=== PATIENT | female | born 1990 | race Caucasian/White ===

== ENCOUNTER 2024-04-18 16:01 | Emergency (ER) | payer OTHER ==
[~2024-04-18] VITALS: Ht 157.5 cm; Wt 66.7 kg
[2024-04-18 16:06] VITALS: TEMP 98.2
[2024-04-18] MEDS ORDERED: LABE100T8 PO (16:36)
[2024-04-18 16:38] LABS: CLARITY,URINE CLOUDY (Clear); COLOR,URINE YELLOW (Yellow); GLUCOSE, URINE NEGATIVE (Neg); PROTEIN,URINE NEGATIVE (Neg); UA COLLECTION TYPE CLN CATCH MIDSTREAM
[2024-04-18 16:39] LABS: BILIRUBIN,URINE SMALL (Neg); KETONES,URINE NEGATIVE (Neg); LEUKOCYTE ESTERASE ,URINE MODERATE (Neg); NITRITES, URINE POSITIVE (Neg); OCCULT BLOOD,URINE MODERATE (Neg); UROBILINOGEN,URINE 0.2 E.U/dL (0.2-1.0)
[2024-04-18 16:40] LABS: BACTERIA,URINE 4+ /HPF (Neg); MUCUS STRANDS FEW /LPF (Neg); RBC,URINE 50-100 /HPF (0-2); SQUAMOUS EPITHELIAL CELL,UR FEW /LPF (FEW); WBC CLUMPS,URINE MANY /HPF (NEGATIVE); WBC,URINE TNTC /HPF (0-4)
[2024-04-18] MEDS ORDERED: CIPR-259 PO (18:58)
[2024-04-18] MEDS: ciprofloxacin 250mg tablet PO ONE (19:02)
[2024-04-18] MEDS ORDERED: PHEN-786 PO (19:33)
[2024-04-18 19:50] VITALS: BP 146/98; PULSE 84; RESP 18; O2SAT 98
== END 2024-04-18 19:52 | disposition home or self-care (01) ==
LOC: ER 16:02
DX: N10 Acute pyelonephritis (principal); Z88.1 Allergy status to other antibiotic agents; Z79.2 Long term (current) use of antibiotics
CPT/HCPCS: 81001; 87077; 87088; 87186; 99283